=== PATIENT | male | born 1955 | race Caucasian/White ===

== ENCOUNTER 2019-08-19 14:37 | Emergency (ER) | payer MEDICARE ==
[~2019-08-19] VITALS: Ht 175 cm; Wt 119.7 kg
[2019-08-19 14:44] VITALS: BP 167/78
[2019-08-19] MEDS ORDERED: FLUT1BLS12 (14:50)
[2019-08-19] MEDS ORDERED: PRAV20TA3 (14:50)
[2019-08-19] MEDS ORDERED: CARV12.53 (14:50)
--- NOTE | 2019-08-19 15:05 | ED Lower Extremity ---
General Chief Complaint: Lower Extremity Stated Complaint: LT FOOT INJ Nursing Triage Note: Fell 5 days ago and heard a pop in left ankle. Has been having ankle pain with ambulation. States the pain is starting to go further up his leg. Has been taking aleve for pain. Nursing Sepsis Screen: No Definite Risk Source: patient Exam Limitations: no limitations History of Present Illness Date Seen by Provider: Aug 19, 2019 Time Seen by Provider: 15:01 Initial Comments fall a few days ago w injury to left ankle. Bruised initially and swollen, pain w prolonged WB, better w rest, ice and elevation. Denies Hx similar injury or previous LE problem Allergies and Home Medications Allergies Coded Allergies: No Known Drug Allergies (Unverified , 08/19/19) Review of Systems Constitutional: no symptoms reported Musculoskeletal: see HPI, joint pain; No joint swelling, No muscle pain, No muscle stiffness, No muscle cramps Psychiatric/Neurological: Denies Numbness, Denies Paresthesia Past Egyarkx-Yzryap-Bnazbb Hx Past Med/Social Hx: Reviewed Nursing Past Med/Soc Hx Patient Social History Alcohol Use: Denies Use Recreational Drug Use: No Smoking Status: Current Everyday Smoker Type Used: Cigarettes 2nd Hand Smoke Exposure: Yes Recent Foreign Travel: No Contact w/Someone Who Travel: No Recent Infectious Disease Expo: No Recent Hopitalizations: No Seasonal Allergies Seasonal Allergies: No Past Medical History Surgeries: Yes (shoulder; neck; ) Orthopedic Respiratory: No Cardiac: Yes High Cholesterol, Hypertension Neurological: No Genitourinary: No Gastrointestinal: No Musculoskeletal: No Endocrine: No HEENT: No Cancer: No Psychosocial: No Integumentary: No Blood Disorders: No Adverse Reaction/Blood Tranf: No Physical Exam Vital Signs Vital Signs - First Documented 08/19/19 14:44 Temp 36.4 Pulse 64 Resp 16 B/P (MAP) 167/78 (107) Pulse Ox 95 Capillary Refill : Less Than 3 Seconds Height, Weight, BMI Height: '" Weight: lbs. oz. kg; 39.00 BMI Method: General Appearance: WD/WN, no apparent distress Legs: bilateral leg non-tender, bilateral leg normal inspection, bilateral leg normal range of motion, bilateral leg no evidence of injury Knees: bilateral knee non-tender, bilateral knee normal inspection, bilateral knee normal range of motion, bilateral knee no evidence of injury Ankles: right ankle non-tender; left ankle normal inspection; right ankle normal range of motion; left ankle limited range of motion, left ankle pain, left ankle soft tissue tenderness, left ankle swelling Feet: bilateral foot non-tender, bilateral foot normal inspection, bilateral foot normal range of motion, bilateral foot no evidence of injury Neurologic/Tendon: normal sensation, normal motor functions, normal tendon functions Neurologic/Psychiatric: no motor/sensory deficits, alert, normal mood/affect Progress/Results/Core Measures Results/Orders My Orders Orders - NAHUN LEMA DO Ankle 3 View Left (08/19/19 15:01) Vital Signs/I&O 08/19/19 14:44 Temp 36.4 Pulse 64 Resp 16 B/P (MAP) 167/78 (107) Pulse Ox 95 Blood Pressure Mean: 107 Departure Impression Primary Impression: Sprain and strain of ankle Disposition: 01 HOME, SELF-CARE Condition: Stable Departure-Patient Inst. Decision time for Depature: 15:04 Referrals: RAH RAMIREZ MD (PCP/Family) Primary Care Physician Patient Instructions: Ankle Sprain (DC) Scripts Hydrocodone/Acetaminophen (Hydrocodone/Acetaminophen 5 MG/325 MG TAB) 1 Each Tablet 1 TAB PO Q6H for Pain MDD 10 TABS for 7 Days, #15 TAB Prov: NAHUN LEMA DO 08/19/19 NAHUN LEMA DO Aug 19, 2019 15:05
--- NOTE | 2019-08-19 15:20 | Diagnostic Imaging Report ---
EXAM: ANKLE 3 VIEW LEFT INDICATION: Fall. Left ankle pain. COMPARISON: None. FINDINGS: No fracture or malalignment. No suspicious osteoblastic or lytic lesions. Plantar and Achilles calcaneal heel spurs. There is a 2 mm metallic radiopaque foreign body in the soft tissues overlying the medial dorsal midfoot. IMPRESSION: 1. No acute osseous findings in the left ankle. 2. The 2 mm radiopaque body in the medial dorsal soft tissues at the level of the midfoot is indeterminate. Dictated by: Dictated on workstation # [id number]
--- OUTSIDE RECORDS SUMMARY | 2019-08-19 15:29 | XMS REPORT | Continuity of Care Document ---
Author Organization Unknown Address Unknown Phone Unavailable Allergies Active Description Code Type Severity Reaction Onset Reported/Identified Relationship to Patient Clinical Status Yes No Known Drug Allergies [id number] Drug Allergy Unknown N/A 08/19/2019 Medications There is no data. Problems Date Dx Coded Attending Type Code Diagnosis Diagnosed By 02/15/2019 RAH RAMIREZ MD, Ot G89.29 OTHER CHRONIC PAIN 02/15/2019 RAH RAMIREZ MD, Ot M25.561 PAIN IN RIGHT KNEE 02/15/2019 RAH RAMIREZ MD, Ot M25.562 PAIN IN LEFT KNEE 02/15/2019 RAH RAMIREZ MD, Ot M79.5 RESIDUAL FOREIGN BODY IN SOFT TISSUE 02/15/2019 RAH RAMIREZ MD, Ot G89.29 OTHER CHRONIC PAIN 02/15/2019 RAH RAMIREZ MD, Ot M25.561 PAIN IN RIGHT KNEE 02/15/2019 RAH RAMIREZ MD, Ot M25.562 PAIN IN LEFT KNEE 02/15/2019 RAH RAMIREZ MD, Ot M79.5 RESIDUAL FOREIGN BODY IN SOFT TISSUE Procedures There is no data. Results There is no data. Encounters ACCT No. Visit Date/Time Discharge Status Pt. Type Provider Facility Loc./Unit Complaint [id number] 07/16/2019 14:30:00 07/16/2019 23:59: 59 CLS Outpatient SELF, [facility] [id number] 02/07/2019 15:49:00 019 23:59:59 CLS Outpatient RAH RAMIREZ MD [facility] RAD CHRONIC PAIN IN KNEES [id number] 08/19/2019 14:39:[address] Emergency NAHUN LEMA DO [facility] ER FS LT FOOT INJ
[2019-08-19] MEDS ORDERED: HYDR-4226 PO (15:33)
== END 2019-08-19 15:41 | disposition home or self-care (01) ==
LOC: EDUNIT# 14:37 → ER FS 14:39
DX: S93.402A Sprain of unspecified ligament of left ankle, initial encounter (principal); W19.XXXA Unspecified fall, initial encounter; F17.210 Nicotine dependence, cigarettes, uncomplicated
CPT/HCPCS: 73610

== ENCOUNTER 2021-01-22 21:29 | Emergency (ER) | payer MEDICARE ==
[~2021-01-22] VITALS: Ht 175.2 cm; Wt 117.9 kg
[~2021-01-22 21:29] MED LIST: ASPI-1238 PO; CARV12.53; FLUT1BLS12; HYDR-4226 PO; PANT40TA2 PO; PRAV20TA3
--- OUTSIDE RECORDS SUMMARY | 2021-01-22 21:35 | XMS REPORT | Clinical Summary ---
Author Author [facility] Organization [facility] Address Unknown Phone Unavailable Care Team Providers Care Shadowgraph Operator Name Role Phone PCP Unavailable Allergies Not on File Medications Not on file Active Problems Not on file Social History Date Tobacco Use Types Packs/Day Years Used Never Assessed Sex Assigned at Date Recorded Not on file Last Filed Vital Signs Not on file Plan of Treatment Not on file Results Not on filefrom Last 3 Months Advance Directives For more information, please contact: [phone] Patient Assistant [employer] And [employer] Explanation Type Date Recorded Health Care 08/27/2013 2:41 PM Directive
--- NOTE | 2021-01-22 21:46 | ED Abdominal Pain ---
General Stated Complaint: LT SIDE ABD PAIN Source of Information: Patient Exam Limitations: No Limitations History of Present Illness Date Seen by Provider: Jan 22, 2021 Time Seen by Provider: 21:38 Initial Comments 65-year-old male with past medical history of CAD with stenting, hypertension, hyperlipidemia, COPD coming in due to moderate to severe left lower quadrant pain that is constant and has been going on since roughly 4 PM. He says he had a change in position when the pain initially started. Now anytime he moves or coughs the pain is worse. Denies any abdominal surgeries, but was told at one time that he has a hernia which he is unsure where. Had a bowel movement at noon. Does have some nausea but no vomiting. He has never had pain like this before. He is otherwise denying any other acute complaints including any chest pain, shortness of breath, vomiting, diarrhea, dysuria, hematochezia, melena, hematuria, or any other concerns. Allergies and Home Medications Allergies Coded Allergies: No Known Drug Allergies (Unverified , 08/19/19) Patient Home Medication List Home Medication List Reviewed: Yes Aspirin (Aspirin EC) 81 Mg Tablet., 81 MG PO DAILY Prescribed by: JOCELIN ORNELAS on 09/23/19 1715 Carvedilol (Carvedilol) 12.5 Mg Tablet, (Reported) Entered as Reported by: IRA SHARP on 08/19/19 1450 Dicyclomine HCl (Dicyclomine HCl) 10 Mg Capsule, 10 MG PO BID Prescribed by: MARYCARMEN MENDES on 01/22/21 2346 Fluticasone Propion/Salmeterol (Fluticasone-Salmeterol 250-50) 1 Each Blst.w.dev, (Reported) Entered as Reported by: IRA SHARP on 08/19/19 1450 Hydrocodone/Acetaminophen (Hydrocodone/Acetaminophen 5 MG/325 MG TAB) 1 Each Tablet, 1 TAB PO Q6H Prescribed by: NAHUN LEMA on 08/19/19 1533 Ondansetron (Ondansetron Odt) 4 Mg Tab.rapdis, 4 MG PO Q6H PRN for NAUSEA/VOMITING Prescribed by: MARYCARMEN MENDES on 01/22/21 2346 Pantoprazole Sodium (Protonix) 40 Mg Tablet., 40 MG PO DAILY Prescribed by: JOCELIN ORNELAS on 09/23/19 1715 Pravastatin Sodium (Pravastatin Sodium) 20 Mg Tablet, (Reported) Entered as Reported by: IRA SHARP on 08/19/19 1450 Review of Systems Review of Systems Constitutional: No chills, No fever EENTM: No Blurred Vision Respiratory: Denies Cough, Denies Shortness of Air Cardiovascular: Denies Chest Pain Gastrointestinal: Abdominal Pain; Denies Diarrhea; Nausea; Denies Vomiting Genitourinary: Denies Frequency, Denies Flank Pain Musculoskeletal: No back pain Skin: No rash Psychiatric/Neurological: No Symptoms Reported Endocrine: No Symptoms Reported Hematologic/Lymphatic: No Symptoms Reported All Other Systems Reviewed Negative Unless Noted: Yes Past Tivzecb-Vmurnk-Jjbztl Hx Seasonal Allergies Seasonal Allergies: No Past Medical History Surgeries: Yes (shoulder; neck; ) Orthopedic Respiratory: No Cardiac: Yes High Cholesterol, Hypertension Neurological: No Genitourinary: No Gastrointestinal: No Musculoskeletal: Yes Arthritis Endocrine: No HEENT: No Cancer: No Psychosocial: No Integumentary: No Blood Disorders: No Adverse Reaction/Blood Tranf: No Physical Exam Vital Signs Vital Signs - First Documented 01/22/21 21:37 Temp 36.9 Pulse 59 Resp 24 B/P (MAP) 176/92 (120) Pulse Ox 98 O2 Delivery Room Air Capillary Refill : Height/Weight/BMI Height: '" Weight: lbs. oz. kg; 38.53 BMI Method: General Appearance: WD/WN, no apparent distress HEENT: PERRL/EOMI, normal ENT inspection, pharynx normal Neck: non-tender, full range of motion, supple, normal inspection Respiratory: chest non-tender, no respiratory distress, no accessory muscle use, wheezing Cardiovascular: regular rate, rhythm, no edema, no murmur Gastrointestinal: normal bowel sounds, soft; No distended, No guarding, No rebound; tenderness Extremities: normal range of motion, non-tender, normal inspection, no pedal edema, no calf tenderness, normal capillary refill Back: normal inspection, no CVA tenderness Neurologic/Psychiatric: no motor/sensory deficits, alert, normal mood/affect Skin: normal color, warm/dry Lymphatic: no adenopathy Focused Exam Lactate Level 01/22/21 21:49: Lactic Acid Level 1.25 Lactic Acid Level Laboratory Tests Test 01/22/21 21:49 Lactic Acid Level 1.25 MMOL/L (0.50-2.00) Progress/Results/Core Measures Results/Orders Lab Results Laboratory Tests Test 01/22/21 21:49 01/22/21 23:25 Range/Units White Blood Count 8.6 4.3-11.0 10^3/uL Red Blood Count 4.63 4.30-5.52 10^6/uL Hemoglobin 14.9 13.3-17.7 g/dL Hematocrit 43 40-54 % Mean Corpuscular Volume 93 80-99 fL Mean Corpuscular Hemoglobin 32 25-34 pg Mean Corpuscular Hemoglobin Concent 35 32-36 g/dL Red Cell Distribution Width 12.7 10.0-14.5 % Platelet Count 278 130-400 10^3/uL Mean Platelet Volume 9.2 9.0-12.2 fL Immature Granulocyte % (Auto) 0 % Neutrophils (%) (Auto) 47 42-75 % Lymphocytes (%) (Auto) 38 12-44 % Monocytes (%) (Auto) 8 0-12 % Eosinophils (%) (Auto) 6 0-10 % Basophils (%) (Auto) 1 0-10 % Neutrophils # (Auto) 4.1 1.8-7.8 X 10^3 Lymphocytes # (Auto) 3.3 1.0-4.0 X 10^3 Monocytes # (Auto) 0.7 0.0-1.0 X 10^3 Eosinophils # (Auto) 0.5 H 0.0-0.3 10^3/uL Basophils # (Auto) 0.1 0.0-0.1 10^3/uL Immature Granulocyte # (Auto) 0.0 0.0-0.1 10^3/uL Sodium Level 138 135-145 MMOL/L Potassium Level 4.3 3.6-5.0 MMOL/L Chloride Level 104 98-107 MMOL/L Carbon Dioxide Level 25 21-32 MMOL/L Anion Gap 9 5-14 MMOL/L Blood Urea Nitrogen 12 7-18 MG/DL Creatinine 0.94 0.60-1.30 MG/DL Estimat Glomerular Filtration Rate 81 BUN/Creatinine Ratio 13 Glucose Level 137 H 70-105 MG/DL Lactic Acid Level 1.25 0.50-2.00 MMOL/L Calcium Level 9.3 8.5-10.1 MG/DL Corrected Calcium 9.1 8.5-10.1 MG/DL Total Bilirubin 0.3 0.1-1.0 MG/DL Aspartate Amino Transf (AST/SGOT) 24 5-34 U/L Alanine Aminotransferase (ALT/SGPT) 25 0-55 U/L Alkaline Phosphatase 89 40-136 U/L Total Protein 7.5 6.4-8.2 GM/DL Albumin 4.2 3.2-4.5 GM/DL Lipase 45 8-78 U/L Urine Color YELLOW Urine Clarity CLEAR Urine pH 6.0 5-9 Urine Specific [place] 1.010 L 1.016-1.022 Urine Protein NEGATIVE NEGATIVE Urine Glucose (UA) NEGATIVE NEGATIVE Urine Ketones NEGATIVE NEGATIVE Urine Nitrite NEGATIVE NEGATIVE Urine Bilirubin NEGATIVE NEGATIVE Urine Urobilinogen 0.2 < = 1.0 MG/DL Urine Leukocyte Esterase NEGATIVE NEGATIVE Urine RBC (Auto) TRACE-I NEGATIVE Urine RBC 0-2 /HPF Urine WBC 0-2 /HPF Urine Squamous Epithelial Cells RARE /HPF Urine Crystals NONE /LPF Urine Bacteria NEGATIVE /HPF Urine Casts NONE /LPF Urine Mucus NEGATIVE /LPF Urine Culture Indicated NO My Orders Orders - MARYCARMEN MENDES MD Comprehensive Metabolic Panel (01/22/21 21:46) Lipase (01/22/21 21:46) Ua Culture If Indicated (01/22/21 21:46) Ed Iv/Invasive Line Start (01/22/21 21:46) Cbc With Automated Diff (01/22/21 21:46) Ct Abdomen/Pelvis W (01/22/21 21:46) Lactic Acid Analyzer (01/22/21 21:46) Ondansetron Injection (Zofran Injectio (01/22/21 22:00) Iohexol Injection (Omnipaque 350 Mg/Ml 1 (01/22/21 22:00) Received Contrast (Hold Metformin- Contr (01/22/21 22:00) Ns (Ivpb) (Sodium Chloride 0.9% Ivpb Bag (01/22/21 22:00) Albuterol Inhaler (Albuterol) (01/22/21 22:00) Morphine Injection (Morphine Injection (01/22/21 23:10) Medications Given in ED Current Medications Medications Dose Ordered Sig/Sera Route Start Time Stop Time Status Last Admin Dose Admin Albuterol Sulfate 4 PUFFS Q2H PRN IH 01/22/21 22:00 01/22/21 22:13 8.5 GM Iohexol 100 ml ONCE ONCE IV 01/22/21 22:00 01/22/21 22:01 DC 01/22/21 22:28 100 ML Ondansetron HCl 4 mg ONCE ONCE IVP 01/22/21 22:00 01/22/21 22:01 DC 01/22/21 22:11 4 MG Sodium Chloride 100 ml ONCE ONCE IV 01/22/21 22:00 01/22/21 22:01 DC 01/22/21 22:28 100 ML Vital Signs/I&O 01/22/21 21:37 Temp 36.9 Pulse 59 Resp 24 B/P (MAP) 176/92 (120) Pulse Ox 98 O2 Delivery Room Air Progress Progress Note : Progress Note 65-year-old male with above history coming in due to left lower quadrant pain. ABCs were intact and vitals were stable on presentation. He has tenderness left lower quadrant but has no peritoneal signs. Labs were drawn were significant for normal creatinine, normal lactate making mesenteric ischemia unlikely, normal LFTs, normal lipase. CT abdomen and pelvis concerning for mesenteric adenitis versus enteritis. He is not having any bloody stools, and he is tolerating p.o. He did require a dose of IV morphine while in the emergency department and awaiting his work-up. The Zofran helped significantly with his nausea. He does not have any significant risk factors, is tolerating p.o., and overall is well-appearing. I believe he is stable for discharge. He was sent home with strict return precautions Diagnostic Imaging Diagonstic Imaging: CT Plain Films/CT/US/NM/MRI: abdomen, pelvis Comments [facility] [place], [place] NAME: [facility] REC#: [id number] PT STATUS: REG ER : 1955 PHYSICIAN: MARYCARMEN MENDES MD ADMIT DATE: 01/22/21/ER FS Draft Date of Exam:01/22/21 CT ABDOMEN/PELVIS W PROCEDURE: CT abdomen and pelvis with contrast. TECHNIQUE: Multiple contiguous axial images were obtained through the abdomen and pelvis after administration of intravenous contrast. Auto Exposure Controls were utilized during the CT exam to meet ALARA standards for radiation dose reduction. All CT scans use one or more of the following dose optimizing techniques: automated exposure control, MA and/or KvP adjustment based on patient size and exam type or iterative reconstruction. INDICATION: Left-sided abdominal pain, prior history of hernia. EXAMINATION: CT abdomen and pelvis with contrast 01/22/2021 FINDINGS: There are calcified granulomata within the visualized lung bases. There is a partially imaged density in the posterior mediastinum which corresponds to a partially calcified mass seen on CT of the chest from 09/21/2019. There is fatty infiltration throughout the liver. The gallbladder is contracted. The spleen contains calcifications with a hypodensity in the spleen, stable from prior CT from 09/21/2019. Kidneys demonstrate no acute abnormalities. Hypodensities too small for characterization. Adrenal glands and pancreas unremarkable. Diverticular disease is noted. There is no evidence for acute diverticulitis. Several prominent small bowel loops seen within the midabdomen which are fluid-filled and likely on the basis of enteritis. There is adjacent mesenteric fat stranding with slightly prominent adjacent lymph nodes which could be reactive or due to mesenteric adenitis. Focal mesenteritis also possible. Appendix normal. Anterior abdominal wall hernia is noted which contains fat. No acute osseous abnormality. IMPRESSION: 1. Focal fat stranding about several prominent lymph nodes in the mid mesentery which could be due to a focal mesenteritis or may be reactive change secondary to what is likely focal enteritis. Mesenteric adenitis not excluded. No obstructive process seen. Otherwise incidental findings as described above throughout the abdomen and pelvis. 2. Partially imaged mass in the posterior mediastinum which is similar to previous imaging as visualized. Dictated on workstation # [id number] Dict: 01/22/21 2303 Trans: 01/22/21 2323 [facility] [id number] Interpreted by: EM CARDOZO MD Electronically signed by: Departure Impression Primary Impression: Mesenteric adenitis Additional Impression: Enteritis Disposition: 01 HOME, SELF-CARE Condition: Stable Departure-Patient Inst. Decision time for Depature: 23:43 Referrals: RAH RAMIREZ MD (PCP/Family) Primary Care Physician Patient Instructions: Mesenteric Lymphadenitis (DC) Add. Discharge Instructions: You were seen in the emergency department for abdominal pain. This is likely what is called enteritis or potentially mesenteric adenitis. These are all things that mean inflammation in areas near your bowels. It does not seem to be dangerous and likely will pass on its own. You can take the Zofran for nausea and try the dicyclomine for pain or also Tylenol. If you have any bloody stoo ls, vomiting that will not stop, worsening pain, or any other concerns then please come back to the emergency department. Scripts Ondansetron (Ondansetron Odt) 4 Mg Tab.rapdis 4 MG PO Q6H PRN for NAUSEA/VOMITING for 5 Days, #20 TAB 0 Refills Prov: MARYCARMEN MENDES MD 01/22/21 Dicyclomine HCl (Dicyclomine HCl) 10 Mg Capsule 10 MG PO BID for 7 Days, #14 CAP Prov: MARYCARMEN MENDES MD 01/22/21 MARYCARMEN MENDES MD Jan 22, 2021 21:46
[2021-01-22] MEDS ORDERED: NS 100 ML (IVPB) BAG IV ONE (22:00)
[2021-01-22] MEDS ORDERED: HOLD METFORMIN - RECEIVED CONTRAST 20 ML VIAL IV SCH (22:00)
[2021-01-22] MEDS ORDERED: IOHEXOL 350 MG/ML 100 ML (OMNIPAQUE 350) VIAL IV ONE (22:00)
[2021-01-22] MEDS ORDERED: ONDANSETRON 4 MG/2 ML (SDV) Z0FRAN IVP ONE (22:00)
[2021-01-22] MEDS ORDERED: RT-ALBUTEROL HFA 8.5 GM INHALER IH PRN (22:00)
[2021-01-22 22:08] LABS: WHITE BLOOD COUNT 8.6 10^3/uL (4.3-11.0)
[2021-01-22 22:09] LABS: BASOPHILS # (AUTO) 0.1 10^3/uL (0.0-0.1); BASOPHILS % (AUTO) 1 % (0-10); EOSINOPHILS # (AUTO) 0.5 10^3/uL (0.0-0.3); EOSINOPHILS % (AUTO) 6 % (0-10); HEMATOCRIT 43 % (40-54); HEMOGLOBIN 14.9 g/dL (13.3-17.7); LYMPHOCYTES # (AUTO) 3.3 X 10^3 (1.0-4.0); LYMPHOCYTES % (AUTO) 38 % (12-44); MEAN CORPUSCULAR HEMOGLOBIN 32 pg (25-34); MEAN CORPUSCULAR HGB CONC 35 g/dL (32-36); MEAN CORPUSCULAR VOLUME 93 fL (80-99); MEAN PLATELET VOLUME 9.2 fL (9.0-12.2); MONOCYTES # (AUTO) 0.7 X 10^3 (0.0-1.0); MONOCYTES % (AUTO) 8 % (0-12); NEUTROPHILS # (AUTO) 4.1 X 10^3 (1.8-7.8); NEUTROPHILS % (AUTO) 47 % (42-75); PLATELET COUNT 278 10^3/uL (130-400)
[2021-01-22 22:20] LABS: POTASSIUM 4.3 MMOL/L (3.6-5.0)
[2021-01-22 22:21] LABS: ALBUMIN 4.2 GM/DL (3.2-4.5); BILIRUBIN,TOTAL 0.3 MG/DL (0.1-1.0); CALCIUM 9.3 MG/DL (8.5-10.1); CREATININE SERUM 0.94 MG/DL (0.60-1.30); TOTAL PROTEIN 7.5 GM/DL (6.4-8.2)
[2021-01-22] MEDS ORDERED: morphine INJ 10 MG/ML 1ML (SYR OR VIAL) IVP STA (23:10)
--- NOTE | 2021-01-22 23:23 | Diagnostic Imaging Report ---
PROCEDURE: CT abdomen and pelvis with contrast. TECHNIQUE: Multiple contiguous axial images were obtained through the abdomen and pelvis after administration of intravenous contrast. Auto Exposure Controls were utilized during the CT exam to meet ALARA standards for radiation dose reduction. All CT scans use one or more of the following dose optimizing techniques: automated exposure control, MA and/or KvP adjustment based on patient size and exam type or iterative reconstruction. INDICATION: Left-sided abdominal pain, prior history of hernia. EXAMINATION: CT abdomen and pelvis with contrast 01/22/2021 FINDINGS: There are calcified granulomata within the visualized lung bases. There is a partially imaged density in the posterior mediastinum which corresponds to a partially calcified mass seen on CT of the chest from 09/21/2019. There is fatty infiltration throughout the liver. The gallbladder is contracted. The spleen contains calcifications with a hypodensity in the spleen, stable from prior CT from 09/21/2019. Kidneys demonstrate no acute abnormalities. Hypodensities too small for characterization. Adrenal glands and pancreas unremarkable. Diverticular disease is noted. There is no evidence for acute diverticulitis. Several prominent small bowel loops seen within the midabdomen which are fluid-filled and likely on the basis of enteritis. There is adjacent mesenteric fat stranding with slightly prominent adjacent lymph nodes which could be reactive or due to mesenteric adenitis. Focal mesenteritis also possible. Appendix normal. Anterior abdominal wall hernia is noted which contains fat. No acute osseous abnormality. IMPRESSION: 1. Focal fat stranding about several prominent lymph nodes in the mid mesentery which could be due to a focal mesenteritis or may be reactive change secondary to what is likely focal enteritis. Mesenteric adenitis not excluded. No obstructive process seen. Otherwise incidental findings as described above throughout the abdomen and pelvis. 2. Partially imaged mass in the posterior mediastinum which is similar to previous imaging as visualized. Dictated by: Dictated on workstation # [id number]
[2021-01-22 23:39] LABS: BACTERIA,URINE NEGATIVE /HPF; BILIRUBIN,URINE NEGATIVE (NEGATIVE); CLARITY,URINE CLEAR; COLOR,URINE YELLOW; GLUCOSE, URINE (UA) NEGATIVE (NEGATIVE); KETONES,URINE NEGATIVE (NEGATIVE); LEUKOCYTE ESTERASE ,URINE NEGATIVE (NEGATIVE); NITRITE,URINE NEGATIVE (NEGATIVE); PROTEIN,URINE NEGATIVE (NEGATIVE); RBC,URINE 0-2 /HPF; SQUAMOUS EPITHELIAL CELL,UR RARE /HPF; WBC,URINE 0-2 /HPF
[2021-01-22] MEDS ORDERED: ONDA4TAB11 PO (23:46)
[2021-01-22] MEDS ORDERED: DICY10CA12 PO (23:46)
[2021-01-22 23:58] VITALS: BP 128/75
== END 2021-01-22 23:58 | disposition home or self-care (01) ==
LOC: EDUNIT# 21:29 → ER FS 21:32
DX: I88.0 Nonspecific mesenteric lymphadenitis (principal); K52.9 Noninfective gastroenteritis and colitis, unspecified; I10 Essential (primary) hypertension; E78.00 Pure hypercholesterolemia, unspecified; I25.10 Atherosclerotic heart disease of native coronary artery without angina pectoris; Z79.82 Long term (current) use of aspirin; Z79.899 Other long term (current) drug therapy
CPT/HCPCS: 36415; 74177; 80053; 81000; 83605; 83690; 85025

== ENCOUNTER → 2021-03-04 | Outpatient (CLI) | payer MEDICARE ==
[~2021-03-04] VITALS: Ht 175 cm; Wt 100.0 kg
[~2021-03-04] MED LIST changes: +CATHETER FLUSH 10 ML SYR IV PRN; +DICY10CA12 PO; +ONDA4TAB11 PO; +REGADENOSON 0.4 MG/5 ML SYR (LEXISCAN) IV ONE
[2021-03-04 11:36] VITALS: BP 132/73
--- NOTE | 2021-03-04 16:23 | NUCLEAR STRESS TEST ---
REGADENOSON NUCLEAR STRESS Date of procedure: 03/04/2021. Primary care provider: Villa Stafford MD Admitting physician: Erick Norton Jr., MD. INDICATION: Coronary artery disease. BASELINE ELECTROCARDIOGRAM: Sinus bradycardia at 54 bpm with possible old septal myocardial infarction. STRESS TEST PROCEDURE: This was initially intended to be a treadmill nuclear stress test but the patient could not obtain his target heart rate and this was changed over to a pharmacologic stress test. The patient was administered 0.4 mg of intravenous Regadenoson. The resting heart rate was 54 bpm and the peak heart rate was 105 bpm. The resting blood pressure was 140/76 mmHg and the minimum blood pressure was 132/73 mmHg. This represents a [] heart rate and a [] blood pressure response to Regadenoson. The test was stopped due to the protocol. There was no chest discomfort during the test. There were isolated premature ventricular complexes during the test. There were no significant stress induced electrocardiogram changes. NUCLEAR PROCEDURE: The patient was administered 10.6 mCi of intravenous technetium 99m Tetrofosmin at rest for the rest images. The patient was subsequently administered 32.5 mCi of intravenous technetium 99m Tetrofosmin at peak stress for the stress images. Following an appropriate wait after each injection, imaging was obtained. The images were subsequently processed and reformatted in the usual views. Gated imaging was obtained. The image quality was adequate but with some gastrointestinal attenuation artifact. CT attenuation correction was used as a adjunct to standard imaging. Both the corrected and uncorrected images were reviewed for interpretation. NUCLEAR RESULTS: There was a small, moderate intensity, predominantly reversible apical defect with a small amount of inducible ischemia with a summed stress score of 4 and a summed difference score of 3. There was normal left ventricular chamber size with an end-diastolic volume of 72 mL and an end- systolic volume of 24 mL. There was no evidence of transient ischemic dilatation. The TID ratio was 0.96. There was normal wall motion in all segm ents with a calculated ejection fraction of 67%. IMPRESSION: 1. Normal heart rate and blood pressure response to regadenoson. 2. There was no chest discomfort or electrocardiogram changes during the test. 3. There were isolated premature ventricular complexes during the test. 4. There was a small, moderate intensity, predominantly reversible apical defect with a small amount of inducible ischemia with a summed stress score of 4 and a summed difference score of 3. 5. There was normal wall motion in all segments with a calculated ejection fraction of 67%. 6. This is a mildly abnormal result although represents an overall low risk for future cardiac events. Certain portions of this document may have been dictated utilizing voice recognition technology. Inherent to this technology, typographical and grammatical errors may exist. As much as I am diligent to identify and correct these mistakes, some errors may remain in the document. ERICK NORTON JR, MD Mar 04, 2021 16:23
== END ==
LOC: CARD 09:13
PROVIDERS: ATTEND Internal Medicine Cardiovascular Disease
DX: I51.7 Cardiomegaly (principal); I25.10 Atherosclerotic heart disease of native coronary artery without angina pectoris
CPT/HCPCS: 78452; 93017; 93306; A9502

== ENCOUNTER 2021-09-02 06:51 | Outpatient (CLI) | payer MEDICARE ==
[~2021-09-02] VITALS: Ht 175 cm; Wt 126.0 kg
[~2021-09-02 06:51] MED LIST changes: -CATHETER FLUSH 10 ML SYR IV PRN; -REGADENOSON 0.4 MG/5 ML SYR (LEXISCAN) IV ONE
[2021-09-02] MEDS ORDERED: NAPR220C11 PO (09:11)
== END 2021-09-02 12:40 | disposition home or self-care (01) ==
LOC: PREOP 06:51
PROVIDERS: ATTEND Surgery
DX: Z01.818 Encounter for other preprocedural examination (principal)

== ENCOUNTER 2021-09-13 08:07 | Day surgery (SDC) | payer MEDICARE ==
[~2021-09-13] VITALS: Ht 175 cm; Wt 126.0 kg
[~2021-09-13 08:07] MED LIST changes: +NAPR220C11 PO
[2021-09-13] MEDS ORDERED: LACTATED RINGERS 1,000 ML IV ONE (08:18)
--- NOTE | 2021-09-13 08:26 | Progress Note-Pre Operative ---
Pre-Operative Progress Note H&P Reviewed The H&P was reviewed, patient examined and no changes noted. Time Seen by Provider: 08:23 Date H&P Reviewed: Sep 13, 2021 Time H&P Reviewed: 08:23 Pre-Operative Diagnosis: Screening Colonoscopy, Epigastric pain ATIYA BUSTOS DO Sep 13, 2021 08:26
[2021-09-13] MEDS ORDERED: LACTATED RINGERS 1,000 ML IV STA (08:29)
[2021-09-13] MEDS ORDERED: HURRICAINE EXT TUBE (BENZOCAINE) XX PRN (08:30)
[2021-09-13 08:35] VITALS: BP 145/85
[2021-09-13] MEDS ORDERED: PROPOFOL INJECTION 50 ML IV ONE (09:09)
[2021-09-13] MEDS ORDERED: MIDAZOLAM 2 MG/2 ML (VERSED) VIAL ONE (09:09)
[2021-09-13 09:43] VITALS: BP 97/56
[2021-09-13 09:45] VITALS: BP 91/57
--- NOTE | 2021-09-13 09:46 | Progress Note-Post Operative ---
Post-Operative Progess Note Surgeon (s)/Credit Processor (s) Surgeon ATIYA BUSTOS DO Credit Processor: Jose Shah, MSIII Pre-Operative Diagnosis Screening Colonoscopy, Epigastric pain Post-Operative Diagnosis Gastritis Hiatal Hernia Esophagitis Poor prep diverticula polyp internal hemorrhoids Procedure & Operative Findings Date of Procedure 09/13/21 Procedure Performed/Findings EGD with bx Colon with cold bx PROCEDURE NOTE: After informed consent was obtained, the patient was brought to the endoscopy suite, placed in bed in left lateral decubitus position. He was administered IV sedation by the RECORD CHANGER ASSEMBLER who then monitored vitals the entire time, heart rate, blood pressure and pulse ox and the scope was inserted down the mouth through the esophagus into the stomach. On the way down, noted some mild esophagitis, pushed into the stomach and past the antrum into the duodenum. Actually looked like there was some narrowing of the pylorus and inflammation, did a biopsy right here. Duodenum looked good. Pulled back and did a biopsy of the body of the stomach and then retroflexed the scope. Pt had a small hiatal hernia, took a picture of this and then pulled the scope into the GE junction. Took a picture of the esophagitis and then did a biopsy of the GE junction. Pushed the scope back into the stomach, suctioned all the air out of the stomach. At this point pulled the scope up the esophagus and out the mouth. Switched camera, switched gloves, went down below and started the colonoscopy. Unfortunately upon entering im- mediately encountered formed stool. Pushed in to about the transverse colon and continued to encounter stool. At this point elected to stop, could not clean it off the kuo and he will need a repeat scope with 2 day prep. Slowly withdrew the scope, insufflating to look circumferentially at the kuo down the transverse colon, splenic flexure, into the descending colon and down into the sigmoid. Saw some diverticula and took a picture. Also found a polyp and did a cold biopsy, finally into the rectum, and saw some minimal internal hemorrhoids and took a picture of this. The patient tolerated the procedure and he recovered in the endoscopy suite. Anesthesia Type IV sedation by RECORD CHANGER ASSEMBLER Estimated Blood Loss Estimated blood loss (mL): scant Specimens/Packing Specimens Removed antral bx body of stomach bx GE jxn bx Sigmoid polyp ATIYA BUSTOS DO Sep 13, 2021 09:46
--- NOTE | 2021-09-13 09:48 | Endoscopy Discharge Instruct ---
Endo Procedure/Findings Findings 1.: Gastritis 2.: Hiatal Hernia 3.: Polyp 4.: Diverticulosis, Internal Hemorrhoids Discharge Instructions - Activity: You might feel a little sleepy until tomorrow. This is due to the medicine you received to relax you. Until tomorrow, you should: NOT drive a car, operate machinery or power tools. NOT drink any alcoholic beverages. NOT make any important decisions or sign importortant papers. Do not return to work until tomorrow, unless otherwise instructed. Resume previous activities tomorrow. Diet: Start by taking liquids. If you tolerate liquids, advance to solid food. 1.: EGD in 3 years 2.: Other Recommendation (Colonoscopy within 1-2 months) Notify Physician - If you experience excessive bleeding, unusual abdominal pain, fever, or chest pain, contact your doctor immediately. ATIYA BUSTOS DO Sep 13, 2021 09:48
[2021-09-13 10:15] VITALS: BP 133/78
[2021-09-13 10:27] VITALS: BP 133/78
--- NOTE | 2021-09-13 13:26 | Anesthesia-General Post-Op ---
MAC Patient Condition Mental Status/LOC: Same as Preop Cardiovascular: Satisfactory Nausea/Vomiting: Absent Respiratory: Satisfactory Pain: Controlled Complications: Absent Post Op Complications Complications None Follow Up Care/Instructions Patient Instructions None needed. Anesthesiology Discharge Order Discharge Order Patient is doing well, no complaints, stable vital signs, no apparent adverse anesthesia problems. No complications reported per nursing. YAKELIN YEE CRNA Sep 13, 2021 13:26
== END 2021-09-13 10:27 | disposition home or self-care (01) ==
LOC: ENDO 08:07
PROVIDERS: ATTEND Surgery
DX: Z12.11 Encounter for screening for malignant neoplasm of colon (principal); K29.50 Unspecified chronic gastritis without bleeding; K21.00 Gastro-esophageal reflux disease with esophagitis, without bleeding; K63.5 Polyp of colon; K44.9 Diaphragmatic hernia without obstruction or gangrene; K57.30 Diverticulosis of large intestine without perforation or abscess without bleeding; K64.8 Other hemorrhoids; F17.210 Nicotine dependence, cigarettes, uncomplicated; Z79.899 Other long term (current) drug therapy

== ENCOUNTER 2022-04-16 11:44 | Emergency (ER) | payer MEDICARE ==
[~2022-04-16] VITALS: Ht 175.3 cm; Wt 122.5 kg
[2022-04-16 11:49] VITALS: BP 134/79
--- NOTE | 2022-04-16 12:27 | ED Cough/URI ---
General Chief Complaint: Cough/Cold/Flu Symptoms Stated Complaint: COUGH, ACHY Source: patient Exam Limitations: no limitations History of Present Illness Date Seen by Provider: Apr 16, 2022 Time Seen by Provider: 12:00 Initial Comments Patient is a 66-year-old male who presents with nasal congestion, rhinorrhea, body aches, painful cough, and sore throat. Symptom onset was 3 days ago. Denies measured fever. No shortness of breath wheezing history of asthma. No history of chronic lung disease. Patient is a non-smoker. Patient is taking NyQuil and nnuq-okz-bjirvcf pain medication without relief. Timing/Duration: this morning Severity/Quality: other Prior Episodes/Possible Cause: other Modifying Factors: Improves With Other Associated Symptoms: other Allergies and Home Medications Allergies Coded Allergies: No Known Drug Allergies (Unverified , 08/19/19) Patient Home Medication List Home Medication List Reviewed: Yes Aspirin (Aspirin EC) 81 Mg Tablet.dr 81 MG PO DAILY Prescribed by: JOCELIN ORNELAS on 09/23/19 1715 Carvedilol (Carvedilol) 12.5 Mg Tablet, (Reported) Entered as Reported by: IRA SHARP on 08/19/19 1450 Dicyclomine HCl (Dicyclomine HCl) 10 Mg Capsule, 10 MG PO BID Prescribed by: MARYCARMEN MENDES on 01/22/21 2346 Naproxen Sodium (Aleve) 220 Mg Capsule, 220 MG PO DAILY, (Reported) Entered as Reported by: LELO BOOKER on 09/02/21 0911 Pantoprazole Sodium (Protonix) 40 Mg Tablet.dr 40 MG PO DAILY Prescribed by: JOCELIN ORNELAS on 09/23/19 1715 Pravastatin Sodium (Pravastatin Sodium) 20 Mg Tablet, (Reported) Entered as Reported by: IRA SHARP on 08/19/19 1450 Review of Systems Review of Systems Constitutional: see HPI EENTM: see HPI Respiratory: see HPI Cardiovascular: see HPI Gastrointestinal: see HPI Genitourinary: see HPI Musculoskeletal: see HPI Skin: see HPI Psychiatric/Neurological: See HPI Hematologic/Lymphatic: See HPI Immunological/Allergic: see HPI All Other Systems Reviewed Negative Unless Noted: No Past Xgijgkr-Aowyaf-Remntq Hx Patient Social History Tobacco Use?: Yes Tobacco type used: Cigarettes Smoking Status: Current Everyday Smoker Substance use?: No Alcohol Use?: No Pt feels they are or have been: No Immunizations Up To Date Tetanus Booster (TDap): Unknown First/Initial COVID19 Vaccinat: 07-29-20 Second COVID19 Vaccination Joseph: 08-26-20 Third COVID19 Vaccination Date: NO Seasonal Allergies Seasonal Allergies: No Past Medical History Surgery/Hospitalization HX: High Cholesterol, GERD, HTN Surgeries: Yes Coronary Stent, Orthopedic Respiratory: No Cardiac: Yes Heart Attack, Hypertension Neurological: No Genitourinary: No Gastrointestinal: Yes Gastroesophageal Reflux Musculoskeletal: Yes (NECK SURGERY) Arthritis Endocrine: No HEENT: No Cancer: No Psychosocial: No Integumentary: No Blood Disorders: No Adverse Reaction/Blood Tranf: No Physical Exam Capillary Refill : Height: '" Weight: lbs. oz. kg; 41.14 BMI Method: General Appearance: no apparent distress HEENT: PERRL/EOMI, normal ENT inspection Neck: non-tender, full range of motion, supple Respiratory: chest non-tender, lungs clear, normal breath sounds Cardiovascular: normal peripheral pulses, regular rate, rhythm Gastrointestinal: non tender Neurologic/Psychiatric: alert, normal mood/affect, oriented x 3 Skin: normal color Progress/Results/Core Measures Suspected Sepsis SIRS Temperature: Pulse: Respiratory Rate: Blood Pressure / Mean: Results/Orders My Orders Orders - ALEXY ORNELAS DO Ketorolac Injection (Toradol Injection) (04/16/22 12:30) Covid 19 Inhouse Test (04/16/22 12:24) Influenza A And B By Pcr (04/16/22 12:24) Isolation Central Supply Req (04/16/22 12:24) Vital Signs/I&O Capillary Refill : Departure Communication (Admissions) Patient with influenza positive. Pain addressed in the emergency department recommendations for therapeutic and supportive care with PCP follow-up. Return precautions reviewed. Patient verbalizes understanding agreement with discharge instructions prior to departure. Impression Primary Impression: Influenza Disposition: 01 HOME, SELF-CARE Condition: Stable Departure-Patient Inst. Decision time for Depature: 12:28 Referrals: ENRICO GUERRERO MD (PCP) Primary Care Physician Patient Instructions: Flu, Adult (DC) Add. Discharge Instructions: You were evaluated in the emergency department for cough or body aches and back pain. Your test for influenza A was positive. Please take newly prescribed medications as directed, rest and increase fluids. Follow-up with your PCP in 3 to 5 days for reevaluation if symptoms persist. Return to the ED if new or worsening symptoms. All discharge instructions reviewed with patient and/or family. Voiced understanding. Scripts Benzonatate (TESSALON PERLES) 100 Mg Capsule 200 MG PO TID, #20 CAP Prov: ALEXY ORNELAS DO 04/16/22 Hydrocodone/Acetaminophen (Hydrocodone-Acetamin 5-325 mg) 5 Mg-325 Mg Tablet 1 TAB PO Q4H PRN for PAIN-MODERATE (5-7), #10 TAB Prov: ALEXY ORNELAS DO 04/16/22 Albuterol Sulfate (Proventil Hfa) 6.7 Gm Hfa.aer.ad 2 PUFF INH Q6H for SHORTNESS OF BREATH, #1 EACH Prov: ALEXY ORNELAS DO 04/16/22 Prednisone (Prednisone) 20 Mg Tab 40 MG PO DAILY, #6 TAB 0 Refills Prov: ALEXY ORNELAS DO 04/16/22 ALEXY ORNELAS DO Apr 16, 2022 12:27
[2022-04-16] MEDS ORDERED: KETOROLAC 60 MG/2 ML VIAL IM ONE (12:30)
[2022-04-16] MEDS ORDERED: RT-ALBUINH INH (12:31)
[2022-04-16] MEDS ORDERED: BENZ100C18 PO (12:31)
[2022-04-16] MEDS ORDERED: ACHD5005 PO (12:31)
[2022-04-16] MEDS ORDERED: PRD20T PO (12:31)
[2022-04-17] MEDS ORDERED: OSEL75CA15 PO (23:18)
== END 2022-04-16 12:48 | disposition home or self-care (01) ==
LOC: EDUNIT# 11:44 → ER FS 11:45
DX: J10.1 Influenza due to other identified influenza virus with other respiratory manifestations (principal); F17.210 Nicotine dependence, cigarettes, uncomplicated; Z20.822 Contact with and (suspected) exposure to COVID-19
CPT/HCPCS: 87636; 99284

== ENCOUNTER 2022-04-17 21:41 | Emergency (ER) | payer MEDICARE ==
[~2022-04-17] VITALS: Ht 175.3 cm; Wt 122.5 kg
[~2022-04-17 21:41] MED LIST changes: +ACHD5005 PO; +BENZ100C18 PO; +PRD20T PO; +RT-ALBUINH INH
[2022-04-17] MEDS ORDERED: NS IV 1000 ML 1,000 ML IV STA (21:51)
[2022-04-17] MEDS ORDERED: methylPREDNISolone 125 MG (Solu-MEDROL) VIAL IVP STA (21:51)
[2022-04-17] MEDS ORDERED: RT-ALBUTEROL/IPRATROPIUM 3 ML (DUONEB) VIAL INH ONE (22:00)
[2022-04-17 22:06] LABS: BASOPHILS % (AUTO) 0 % (0-10); EOSINOPHILS % (AUTO) 0 % (0-10); HEMATOCRIT 38 % (40-54); HEMOGLOBIN 13.4 g/dL (13.3-17.7); LYMPHOCYTES # (AUTO) 1.3 10^3/uL (1.0-4.0); LYMPHOCYTES % (AUTO) 13 % (12-44); MEAN CORPUSCULAR HEMOGLOBIN 33 pg (25-34); MEAN CORPUSCULAR HGB CONC 35 g/dL (32-36); MEAN CORPUSCULAR VOLUME 93 fL (80-99); MEAN PLATELET VOLUME 8.5 fL (9.0-12.2); MONOCYTES # (AUTO) 1.1 10^3/uL (0.0-1.0); MONOCYTES % (AUTO) 11 % (0-12); NEUTROPHILS # (AUTO) 7.4 10^3/uL (1.8-7.8); NEUTROPHILS % (AUTO) 76 % (42-75); PLATELET COUNT 232 10^3/uL (130-400); WHITE BLOOD COUNT 9.8 10^3/uL (4.3-11.0)
[2022-04-17 22:24] LABS: CREATININE SERUM 0.92 MG/DL (0.60-1.30); POTASSIUM 4.6 MMOL/L (3.6-5.0)
[2022-04-17 22:25] LABS: ALBUMIN 4.2 GM/DL (3.2-4.5); BILIRUBIN,TOTAL 0.2 MG/DL (0.1-1.0); CALCIUM 9.4 MG/DL (8.5-10.1); TOTAL PROTEIN 7.5 GM/DL (6.4-8.2)
--- NOTE | 2022-04-17 22:50 | ED General ---
General Chief Complaint: Cough/Cold/Flu Symptoms Stated Complaint: SOB Nursing Triage Note: Pt arrival per POV ambulating into ER accompanied by girlfriend reporting does not feel better since ER visit yesterday reporting he does not have COVID. Pt coughing severely and feels pain in back muscles from cough. Pt has used inhaler since 1600. Pt has COPD and continues to smoke. Pt was inquired of further tests results and treatment plans then he replied he has 4 new meds total and ONLY has Influenza A. Source of Information: Patient History of Present Illness Date Seen by Provider: Apr 17, 2022 Time Seen by Provider: 21:42 Initial Comments 66-year-old male presenting with increased shortness of breath. He states he was here yesterday and had testing done which showed he had influenza A. He is trying to cut back on his tobacco use and quit smoking. He does have COPD but states that he was told it was mild. He was started on steroids as well as inhaler and hydrocodone for pain. He continued to feel short of breath especially when it got hot. At home they have further heater at 78 to 80 F because his significant other gets cold easily and prefers it to be really hot in the house. He has felt like his breathing was worse and it does improve when he is out in the colder weather outside. He got so short of breath that he decided to come back to the emergency department. Timing/Duration: 1-2 Days Severity: Severe Modifying Factors: worse with Movement Associated Systoms: Cough; No Diaphoresis; Fever/Chills, Headaches, Malaise; No Nausea/Vomiting, No Rash, No Seizure; Shortness of Air; No Syncope, No Weakness Allergies and Home Medications Allergies Coded Allergies: No Known Drug Allergies (Unverified , 08/19/19) Patient Home Medication List Home Medication List Reviewed: Yes Albuterol Sulfate (Proventil Hfa) 6.7 Gm Hfa.aer.ad, 2 PUFF INH Q6H Prescribed by: ALEXY ORNELAS on 04/16/22 1231 Last Action: Reviewed Aspirin (Aspirin EC) 81 Mg Tablet.dr, 81 MG PO DAILY Prescribed by: JOCELIN ORNELAS on 09/23/19 4315 Benzonatate (Tessalon Perles) 100 Mg Capsule, 200 MG PO TID Prescribed by: ALEXY ORNELAS on 04/16/22 1231 Last Action: Reviewed Carvedilol (Carvedilol) 12.5 Mg Tablet, (Reported) Entered as Reported by: IRA SHARP on 08/19/19 1450 Dicyclomine HCl (Dicyclomine HCl) 10 Mg Capsule, 10 MG PO BID Prescribed by: MARYCARMEN MENDES on 01/22/21 2346 Hydrocodone/Acetaminophen (Hydrocodone-Acetamin 5-325 mg) 5 Mg-325 Mg Tablet, 1 TAB PO Q4H PRN for PAIN-MODERATE (5-7) Prescribed by: ALEXY ORNELAS on 04/16/22 1232 Last Action: Reviewed Naproxen Sodium (Aleve) 220 Mg Capsule, 220 MG PO DAILY, (Reported) Entered as Reported by: LELO BOOKER on 09/02/21 0911 Oseltamivir Phosphate (Oseltamivir Phosphate) 75 Mg Capsule, 75 MG PO BID Prescribed by: KO TRAVIS on 04/17/22 2318 Last Action: Reviewed Pantoprazole Sodium (Protonix) 40 Mg Tablet.dr, 40 MG PO DAILY Prescribed by: JOCELIN ORNELAS on 09/23/19 1715 Pravastatin Sodium (Pravastatin Sodium) 20 Mg Tablet, (Reported) Entered as Reported by: IRA SHARP on 08/19/19 1450 Prednisone (Prednisone) 20 Mg Tab, 40 MG PO DAILY Prescribed by: ALEXY ORNELAS on 04/16/22 1231 Last Action: Reviewed Review of Systems Review of Systems Constitutional: chills, fever EENTM: nose congestion, throat pain Respiratory: see HPI Cardiovascular: chest pain (chest wall pain from coughing) Gastrointestinal: no symptoms reported Genitourinary: no symptoms reported Musculoskeletal: see HPI (generalized body aches) Skin: No rash Psychiatric/Neurological: Headache Hematologic/Lymphatic: Denies Blood Clots Past Cflyeff-Olgthf-Fxfdmt Hx Patient Social History Tobacco Use?: Yes Tobacco type used: Cigarettes Smoking Status: Current Everyday Smoker Smokeless Tobacco Frequency: Unknown if Ever Used Use of E-Cig and/or Vaping David: Unknown if Ever Used Substance use?: No Alcohol Use?: Unable to obtain Immunizations Up To Date Tetanus Booster (TDap): Unknown First/Initial COVID19 Vaccinat: 07-29-20 Second COVID19 Vaccination Joseph: 08-26-20 Third COVID19 Vaccination Date: NO COVID19 Vaccine Medical Staff Manager: unk Seasonal Allergies Seasonal Allergies: No Past Medical History Surgery/Hospitalization HX: High Cholesterol, GERD, HTN Surgeries: Yes Coronary Stent, Orthopedic Respiratory: No Cardiac: Yes Heart Attack, Hypertension Neurological: No Genitourinary: No Gastrointestinal: Yes Gastroesophageal Reflux Musculoskeletal: Yes (NECK SURGERY) Arthritis Endocrine: No HEENT: No Cancer: No Psychosocial: No Integumentary: No Blood Disorders: No Adverse Reaction/Blood Tranf: No Physical Exam Vital Signs Vital Signs - First Documented 04/17/22 21:41 Temp 36.6 Pulse 76 Resp 26 B/P (MAP) 156/42 (80) Pulse Ox 97 O2 Delivery Room Air Capillary Refill : Less Than 3 Seconds Height, Weight, BMI Height: '" Weight: lbs. oz. kg; 39.00 BMI Method: General Appearance: Anxious, Mild Distress HEENT: PERRL/EOMI, Pharynx Normal Neck: Full Range of Motion, Normal Inspection, Non Tender, Supple Respiratory: No Accessory Muscle Use, No Respiratory Distress, Decreased Breath Sounds; No Stridor; Wheezing Cardiovascular: Regular Rate, Rhythm, Normal Peripheral Pulses Gastrointestinal: Normal Bowel Sounds, No Pulsatile Mass, Non Tender, Soft Rectal: Deferred Extremity: Normal Capillary Refill, Normal Inspection, No Pedal Edema Neurologic/Psychiatric: Alert, Oriented x3 Skin: Normal Color, Warm/Dry Progress/Results/Core Measures Suspected Sepsis SIRS Temperature: Pulse: 76 Respiratory Rate: 26 Laboratory Tests 04/17/22 22:00: White Blood Count 9.8 Blood Pressure 156 /42 Mean: 80 Laboratory Tests 04/17/22 22:00: Creatinine 0.92, Platelet Count 232, Total Bilirubin 0.2 Results/Orders Lab Results Laboratory Tests Test 04/17/22 22:00 Range/Units White Blood Count 9.8 4.3-11.0 10^3/uL Red Blood Count 4.06 L 4.30-5.52 10^6/uL Hemoglobin 13.4 13.3-17.7 g/dL Hematocrit 38 L 40-54 % Mean Corpuscular Volume 93 80-99 fL Mean Corpuscular Hemoglobin 33 25-34 pg Mean Corpuscular Hemoglobin Concent 35 32-36 g/dL Red Cell Distribution Width 12.9 10.0-14.5 % Platelet Count 232 130-400 10^3/uL Mean Platelet Volume 8.5 L 9.0-12.2 fL Immature Granulocyte % (Auto) 0 % Neutrophils (%) (Auto) 76 H 42-75 % Lymphocytes (%) (Auto) 13 12-44 % Monocytes (%) (Auto) 11 0-12 % Eosinophils (%) (Auto) 0 0-10 % Basophils (%) (Auto) 0 0-10 % Neutrophils # (Auto) 7.4 1.8-7.8 10^3/uL Lymphocytes # (Auto) 1.3 1.0-4.0 10^3/uL Monocytes # (Auto) 1.1 H 0.0-1.0 10^3/uL Eosinophils # (Auto) 0.0 0.0-0.3 10^3/uL Basophils # (Auto) 0.0 0.0-0.1 10^3/uL Immature Granulocyte # (Auto) 0.0 0.0-0.1 10^3/uL Sodium Level 139 135-145 MMOL/L Potassium Level 4.6 3.6-5.0 MMOL/L Chloride Level 103 98-107 MMOL/L Carbon Dioxide Level 26 21-32 MMOL/L Anion Gap 10 5-14 MMOL/L Blood Urea Nitrogen 19 H 7-18 MG/DL Creatinine 0.92 0.60-1.30 MG/DL Estimat Glomerular Filtration Rate 93 BUN/Creatinine Ratio 21 Glucose Level 133 H 70-105 MG/DL Calcium Level 9.4 8.5-10.1 MG/DL Corrected Calcium 9.2 8.5-10.1 MG/DL Total Bilirubin 0.2 0.1-1.0 MG/DL Aspartate Amino Transf (AST/SGOT) 48 H 5-34 U/L Alanine Aminotransferase (ALT/SGPT) 28 0-55 U/L Alkaline Phosphatase 78 40-136 U/L C-Reactive Protein 2.72 H <0.50 MG/DL Total Protein 7.5 6.4-8.2 GM/DL Albumin 4.2 3.2-4.5 GM/DL My Orders Orders - KO TRAVIS MD Cbc With Automated Diff (04/17/22 21:51) Comprehensive Metabolic Panel (04/17/22 21:51) Chest 1 View Ap/Pa Only (04/17/22 21:51) Albuterol/Ipra Inhalation Soln (Duoneb I (04/17/22 22:00) Ed Iv/Invasive Line Start (04/17/22 21:51) Monitor-Rhythm Ecg Trace Only (04/17/22 21:51) Crp Fs (04/17/22 21:51) Svn Small Volume Nebulizer (04/17/22 21:51) Ns Iv 1000 Ml (Sodium Chloride 0.9%) (04/17/22 21:51) Methylprednisolone Sod Succ (Solu-Medrol (04/17/22 21:51) Oseltamivir 75 Mg Capsule (Tamiflu 75 (04/17/22 23:14) Nursing Communication (Order) (04/17/22 23:15) Medications Given in ED Current Medications Medications Dose Ordered Sig/Sera Route Start Time Stop Time Status Last Admin Dose Admin Albuterol/ Ipratropium 3 ml ONCE ONCE INH 04/17/22 22:00 04/17/22 22:01 DC 04/17/22 22:04 3 ML Vital Signs/I&O 04/17/22 04/17/22 04/17/22 04/17/22 21:41 21:41 22:04 23:29 Temp 36.6 36.6 Pulse 76 71 Resp 26 23 B/P (MAP) 156/42 (80) 128/80 Pulse Ox 97 97 96 O2 Delivery Room Air Room Air Room Air Room Air 04/18/22 00:00 Intake Total 1000 ml Balance 1000 ml Capillary Refill : Less Than 3 Seconds Blood Pressure Mean: 80 Progress Note #1: Progress Note Check basic labs and chest x-ray. Give normal saline 1 L IV fluid bolus for hydration. Steroid shot to help with cough and congestion. Discussed taking Tamiflu to try and help with his influenza and COPD. Counseled on symptomatic treatment. Progress Note #2: Progress Note Patient was feeling better after breathing treatment, steroid, IV fluids. His labs appear stable without acute significant abnormality. He has no acute infiltrate on his chest x-ray on my review of his 1 view film. If start Tamiflu may continue with the steroids and medicines as prescribed yesterday. Sent with a spacer to use with his inhaler at home. Counseled on follow-up and return precautions. Diagnostic Imaging Diagonstic Imaging: Xray Plain Films/CT/US/NM/MRI: chest Comments On my review and personal interpretation of the 1 view chest x-ray he has no acute infiltrate or effusion. Departure Impression Primary Impression: Influenza A Additional Impressions: Shortness of breath COPD with exacerbation Disposition: 01 HOME, SELF-CARE Condition: Stable Departure-Patient Inst. Decision time for Depature: 23:16 Referrals: SELFENRICO MD (PCP/Family) Primary Care Physician Patient Instructions: Shortness of Breath, Adult ED, How to Use a Metered Dose Inhaler ED, Flu, Adult ED, COPD Exacerbation, Adult ED, COPD Diet, How to Use a Spacer Add. Discharge Instructions: Stay well-hydrated and drink extra fluids to help your body heal from the infection. Consider using plain Mucinex or plain Robitussin [id number] to loosen your cough and congestion. You need to drink extra fluids when you take these medicines to help them work better. Use the spacer with your inhaler to help with your breathing. You could use the inhaler every 3-4 hours as needed for cough and shortness of breath. You will make your heart race and may feel jittery from taking the medicine. Continue with the steroid and medicine as prescribed yesterday. Add in the Tamiflu to help shorten the course of the flu virus infection. All discharge instructions reviewed with patient and/or family. Voiced understanding. Scripts Oseltamivir Phosphate (Oseltamivir Phosphate) 75 Mg Capsule 75 MG PO BID for Influenza A for 5 Days, #10 CAP 0 Refills Prov: KO TRAVIS MD 04/17/22 KO TRAVIS MD Apr 17, 2022 22:50
[2022-04-17] MEDS ORDERED: OSELTAMIVIR 75 MG (TAMIFLU) CAPSULE PO STA (23:14)
[2022-04-17] MEDS ORDERED: OSEL75CA15 PO (23:18)
[2022-04-17 23:29] VITALS: BP 128/80
--- NOTE | 2022-04-18 08:10 | Diagnostic Imaging Report ---
EXAMINATION: Chest radiograph, portable AP view. DATE: 04/17/2022 10:25 PM INDICATION: 66-year-old male, cough and shortness of breath. COMPARISON: September 21, 2019. FINDINGS: There is cervical spine hardware. Heart size and mediastinal contours are unchanged. There is no identified pneumothorax. There is no large pleural effusion. There is no identified interval focal airspace consolidation. There is widening of the left acromioclavicular joint. IMPRESSION: 1. No identified acute cardiopulmonary abnormality. Dictated by: Dictated on workstation # [id number]
== END 2022-04-17 23:29 | disposition home or self-care (01) ==
LOC: EDUNIT# 21:41 → ER FS 21:42
DX: J10.1 Influenza due to other identified influenza virus with other respiratory manifestations (principal); J44.1 Chronic obstructive pulmonary disease with (acute) exacerbation; F17.210 Nicotine dependence, cigarettes, uncomplicated
CPT/HCPCS: 36415; 71045; 80053; 85025; 86141; 93041; 94640

== ENCOUNTER → 2022-06-14 | Outpatient (CLI) | payer MEDICARE ==
[~2022-06-14] MED LIST changes: +OSEL75CA15 PO
== END ==
LOC: CARDFS 12:30
PROVIDERS: ATTEND Internal Medicine Cardiovascular Disease
DX: I51.7 Cardiomegaly (principal)
CPT/HCPCS: 93306